=== PATIENT | female | born 1980 | race Hispanic/Latino ===

== ENCOUNTER 2016-10-08 16:27 | Emergency (ER) | payer OTHER ==
--- NOTE | 2016-10-08 16:56 | PDOC ---
Neuro Symptoms / Deficit HPI - General Chief Complaint: Neurological Complaints Stated Complaint: SEIZURE Date Seen by Provider: 10/08/16 Time Seen by Provider: 16:51 Source: POSITIVE: Patient, EMS Exam Limitations: POSITIVE: Clinical condition Nurse's Notes Reviewed & Considered: Yes EMS Report Reviewed & Considered: Verbal - History of Present Illness Initial Comments: Patient is brought in today after being arrested. During her rest she had what appeared to be seizure activity. Patient does have a history of seizure activity. It is noted by the officers involved that every time that this patient was arrested for the last 5 years she has had a seizure. This reports no postictal activity she did become combative and received Haldol. Timing: REPORTS: Abrupt Duration: 1/2 hour Severity: Mild Context: REPORTS: Other (Arrest) Character of Deficit(s): REPORTS: Other (None) Associated Symptoms: REPORTS: Other (None) Usual Ability to Walk/Stand: REPORTS: Walks w/o Assistance Usual Cognition: REPORTS: Alert & Oriented x3 Similar Symptoms Previously: No Recently seen/treated/hospitalized: No Any Prior Injuries Related to Current Complaint?: No - Patient Home Medications Home Medications: Home Medications Divalproex Sodium 500 mg PO BID tab 06/21/16 Hydrocodone/Acetaminophen [[place] 5-325 Tablet] 1 - 2 each PO Q6H PRN #10 tablet 08/14/16 Omeprazole 20 mg PO BID #30 cap 08/14/16 Ondansetron Odt [Zofran Odt] 8 mg PO Q6H PRN #10 tab.rapdis 08/14/16 Pantoprazole Sodium [Protonix] 40 mg PO BID #60 tablet 08/16/16 Buspirone HCl 1 tab PO BID #60 tab 08/18/16 - Patient Allergies Allergies/Adverse Reactions: Allergies Allergy/AdvReac Type Severity Reaction Status Date / Time risperidone [From Risperdal] Allergy Intermediate NOT Verified 10/08/16 16:48 APPLICABLE codeine AdvReac Intermediate NAUSEA Verified 10/08/16 16:48 metoclopramide HCl AdvReac Intermediate AGITATION Verified 10/08/16 16:48 [From Reglan] lorazepam [From Ativan] AdvReac NOT Verified 10/08/16 16:48 APPLICABLE Past Medical History - heen HEENT History: Denies History Additional HEENT History: WEARS GLASSES FOR NEAR SIGHTEDNESS BROKEN TEETH IN THE BACK Cardiovascular History: Denies History Respiratory History: Denies History Gastrointestinal History: Gallbladder Disease, Other (please comment) Additional Gastrointestinal History: STATES ULCERS A YEAR AGO, CHOLECYSTECTOMY Genitourinary History: Denies History Endocrine History: Denies History Musculoskeletal History: Joint Pain Prosthesis or Implant: Yes (plate/ screws left foot) Additional Musculoskeletal History: FOOT PAIN, SURGERY TO REPAIR LEFT BROKEN TOE , SURGERY ON LEFT SHOULDER Neurological History: Seizures, Other (please comment) Additional Neurological History: HX OF PSEUDOSEIZURES Blood Disorders: Denies History Psychiatric History: Depression, Bi Polar Disorder, Anixety Disorders, Substance Abuse, PTSD Additional Psychiatric History: BORDERLINE PERSONALITY DISORDER/ CONVERSION DISORDER/ IMPULSE CONTROL DISORDER/ MOOD DISORDER/ History of Sexually Transmitted Diseases: No Cancer History: Denies History Cancer Treatment / Date(s) of Treatment: 2007 History of MDRO: Yes History of Other Communicable Diseases: No Alcohol Use: None Substance Use Type: None Previous Surgical History: Yes Type / Date of Surgery: TANNA/ HYST W BSO/ TUBAL /LEFT SHOULDER / LEFT TOE Anesthesia Reactions: No Malignant Hyperthermia: No Significant Family History: Diabetes, Heart disease, Hypertension, Lung disease , Seizures ROS - Limitations ROS Limitations: Clinical Condition Neuro Symptoms / Deficit Exam - General Appearance General Appearance: POSITIVE: Mild Distress - HEENT HEENT: POSITIVE: Head Inspection Nml, Eyes Inspection Nml, Ears Inspection Nml, Nose Inspection Nml, Oral/Dental Inspect. Nml, Pharynx Inspect. Nml, PERRL, EOMI - Pupil Size Pupil Size: 5 mm: Bilateral - Neuro / Psych Higher Functions: POSITIVE: Oriented to Person, Oriented to Place, Oriented to Time, Normal Speech, Normal Cognition, Other (tearful) Cranial Nerves: POSITIVE: Normal As Tested, No Evidence of Acute CVA Cerebellar: POSITIVE: Normal As Tested Peripheral Exam: POSITIVE: Sensation Normal, Motor Normal, Reflexes Normal Reflexes: Radial (R): 3+, Radial (L): 3+ - Neck Neck: POSITIVE: Supple, Non-Tender - Respiratory Respiratory: POSITIVE: No Respiratory Distress, Breath Sounds Normal, Respiratory Distress - Cardiovascular Cardiovascular: POSITIVE: Regular Rate & Rhythm, Heart Sounds Normal - Abdomen Abdomen: Soft: (All Quadrants), Normal Bowel Sounds: (All Quadrants), Denies Tenderness: (All Quadrants) - Skin Skin: POSITIVE: Intact, Normal For Race, Warm, Dry, No Rash - Extremities Extremity: Non-Tender: (All Extremities), Normal ROM: (All Extremities), Normal Inspection: (All Extremities) Neuro Symptom/Deficit Progress - Patient's Progress Status: POSITIVE: Unchanged MDM / ED Course: Patient was evaluated in the emergency department and discharged. - Consult Counseled: POSITIVE: Patient, RE: DX Patient Care Time - Estimated PCT Patient Care Time (In Minutes): 15 Vital Signs - VS Reviewed Vital Signs Reviewed: Yes Discharge Clinical Impression: Anxiety attack, Methamphetamine abuse Discharge Disposition: Discharged to Custody of Law Enforcement Condition: Stable Patient Instructions Given at Discharge: Methamphetamine Abuse (ED) Date Decision to Transfer to Another Facility: 10/08/16 Time Decision to Transfer to Another Facility: 16:57
[2016-10-08 17:33] VITALS: RESP 20; TEMP 97.5
[2016-10-08] MEDS ORDERED: Sodium Chloride 0.9% 1,000 ML ONE (18:00)
== END 2016-10-08 17:30 ==
LOC: ER 16:27
DX: F41.9 Anxiety disorder, unspecified (principal); Z71.51 Drug abuse counseling and surveillance of drug abuser; F15.20 Other stimulant dependence, uncomplicated
CPT/HCPCS: 99282; J7030

== ENCOUNTER 2016-10-09 11:46 | Emergency (ER) | payer OTHER ==
[2016-10-09] MEDS ORDERED: Sodium Chloride 0.9% 1,000 ML PRIMARY IV ONE (12:05)
[2016-10-09] MEDS ORDERED: NORMAL SALINE 10 ML SYRINGE FLUSH IVP PRN (12:05)
[2016-10-09 12:07] VITALS: RESP 16; TEMP 96.6
[2016-10-09 12:36] LABS: BASOPHILS # (AUTO) 0.01 10*3/UL; BASOPHILS % (AUTO) 0.3 % (0-1); EOSINOPHILS % (AUTO) 1.5 % (0-8); HEMATOCRIT 39.1 % (37.0-47.0); HEMOGLOBIN 13.4 g/dL (12.0-16.0); IMM GRAN % (AUTO) 0.5 % (0-5); IMM GRAN# (AUTO) 0.02 10*3/UL; LYMPHOCYTES # (AUTO) 1.34 10*3/uL; LYMPHOCYTES % (AUTO) 34.1 % (10-50); MEAN CORPUSCULAR HEMOGLOBIN 29.4 PG (27-31); MEAN CORPUSCULAR HGB CONC 34.3 g/dL (33-37); MEAN PLATELET VOLUME 8.3 FL (7.4-12.2); MONOCYTES # (AUTO) 0.29 10*3/UL (0.3-0.8); MONOCYTES % (AUTO) 7.4 % (5-15); NEUTROPHILS # (AUTO) 2.21 10*3/UL; NEUTROPHILS % (AUTO) 56.2 % (50-80); RDW COEFFICIENT OF VARIATION 13.1 % (11.5-14.5); RED BLOOD COUNT 4.56 10^6/uL (4.20-5.40); WHITE BLOOD COUNT 3.93 10^3/uL (4.8-10.8)
[2016-10-09 12:44] LABS: PLATELET MORPHOLOGY COMMENT NORMAL MORPHOLOGY (NORM)
[2016-10-09 12:47] LABS: ASPARTATE AMINO TRANSFERASE 21 IU/L (8-39); BILIRUBIN,TOTAL 0.7 mg/dL (0.3-1.2); BLOOD UREA NITROGEN 15 mg/dL (7-22); BUN/CREATININE RATIO 18.75 (6-20); CALCIUM 9.4 mg/dL (8.7-10.7); CHLORIDE 110 meq/L (98-112); CREATININE 0.8 mg/dL (0.50-1.20); EST GLOMERULAR FILTRATION > 60 (>60 ml/min/1.73m(2)); GLUCOSE 93 mg/dL (78-110); MAGNESIUM 2.1 mg/dL (1.6-2.4); SODIUM 144 meq/L (135-145); TOTAL PROTEIN 6.6 g/dL (6.1-8.0)
--- NOTE | 2016-10-09 12:47 | EKG ---
[address] [address] Measurements Intervals [place] Rate: 86 P: 74 UT: 155 QRS: 56 QRSD: 93 T: 53 QT: 374 QTc: 417 Interpretive Statements SINUS RHYTHM Compared to ECG 07/21/2016 08:35:11 No significant changes Electronically Signed On 10-10-16 08:10:26 MST by Van Capps [email or web address]
[2016-10-09] MEDS ORDERED: DIVALPROEX SODIUM 250 MG TABLET PO ONE (13:30)
[2016-10-09 13:31] LABS: CANNABINOID SCREEN,URINE NEGATIVE (NEG); COCAINE SCREEN POSITIVE (NEG); METHAMPHETAMINES SCREEN,URINE NEGATIVE (NEG); URINE SAMPLE TYPE CLEAN CATCH URINE; URINE SPECIFIC GRAVITY - MAN 1.025
--- NOTE | 2016-10-09 20:13 | PDOC ---
Seizure HPI - General Chief Complaint: Neurological Complaints Stated Complaint: seizure Date Seen by Provider: 10/09/16 Time Seen by Provider: 11:15 Source: POSITIVE: Patient, Police, EMS Exam Limitations: POSITIVE: Clinical condition (Somnolent on arrival) Nurse's Notes Reviewed & Considered: Yes EMS Report Reviewed & Considered: Verbal - History of Present Illness Initial Comments: The patient is a 37-year-old female. She is a prisoner at the shelter. She is brought to the emergency room by ambulance. Patient was admitted to the shelter yesterday; at that time patient reportedly acknowledged methamphetamine abuse. Patient has a well-known and long-standing history of seizures/pseudoseizures and is under the care of a neurologist in [place]. She is supposed to be taking divalproex sodium, 500 mg twice daily, but states she's not taken this medication for several days. Patient also has a long-standing history of substance abuse. Just prior to coming to the emergency room shelter personnel noticed that the patient demonstrated some tonic activities of both upper extremities and some "grinding of her teeth". [facility] personnel called the ambulance and the ambulance brought her to the emergency room. Paramedics report that on their arrival the patient was sitting in her bed and was alert. Upon arrival to the emergency room she was somewhat somnolent but will answer questions appropriately. Body Location Affected: REPORTS: Upper Extremity (L), Upper Extremity (R), Other (Tonic activity of upper extremities associated with some bruxism) Timing: REPORTS: Abrupt Duration: Other (1-2 minutes) Severity: Moderate Quality: REPORTS: Other (No apparent pain anywhere) Seizure Began at (time): 11:00 Most Recent Seizure Episode: 10/09/16 Witnessed Seizure?: Yes (shelter personnel) Preceding Symptoms/Context (specify in comments): REPORTS: Recent Drug Use ( Patient acknowledges methamphetamine use and abuse), Seiz. Meds Dosages Missed ( Patient is supposed to be taking divalproex sodium, 500 mg twice daily, but acknowledges she has not been taking this.) Character of Seizure(s): REPORTS: Partially Unresponsive, Other (As above; tonic activities upper extremities and bruxism). DENIES: Consc. Not Regain. b/ w Sz, Gen. "Shaking all Over", "Shaking" in One Area, Staring, Incontinent of Urine, Incontinent of Stool, Stopped Breathing, Lost Pulse Post-ictal Symptoms: REPORTS: Other (Somnolence) Recently seen/treated/hospitalized: No Any Prior Injuries Related to Current Complaint?: No - Patient Home Medications Home Medications: Home Medications Divalproex Sodium 500 mg PO BID tab 06/21/16 Hydrocodone/Acetaminophen [[place] 5-325 Tablet] 1 - 2 each PO Q6H PRN #10 tablet 08/14/16 Omeprazole 20 mg PO BID #30 cap 08/14/16 Ondansetron Odt [Zofran Odt] 8 mg PO Q6H PRN #10 tab.rapdis 08/14/16 Pantoprazole Sodium [Protonix] 40 mg PO BID #60 tablet 08/16/16 Buspirone HCl 1 tab PO BID #60 tab 08/18/16 Divalproex Sodium [Depakote] 500 mg PO BID #60 tab 10/09/16 - Patient Allergies Allergies/Adverse Reactions: Allergies Allergy/AdvReac Type Severity Reaction Status Date / Time risperidone [From Risperdal] Allergy Intermediate NOT Verified 10/09/16 13:09 APPLICABLE codeine AdvReac Intermediate NAUSEA Verified 10/09/16 13:09 metoclopramide HCl AdvReac Intermediate AGITATION Verified 10/09/16 13:09 [From Reglan] lorazepam [From Ativan] AdvReac NOT Verified 10/09/16 13:09 APPLICABLE Past Medical History - heen HEENT History: Denies History Additional HEENT History: WEARS GLASSES FOR NEAR SIGHTEDNESS BROKEN TEETH IN THE BACK Cardiovascular History: Denies History Respiratory History: Denies History Gastrointestinal History: Gallbladder Disease, Other (please comment) Additional Gastrointestinal History: STATES ULCERS A YEAR AGO, CHOLECYSTECTOMY Genitourinary History: Denies History Endocrine History: Denies History Musculoskeletal History: Joint Pain Prosthesis or Implant: Yes (plate/ screws left foot) Additional Musculoskeletal History: FOOT PAIN, SURGERY TO REPAIR LEFT BROKEN TOE , SURGERY ON LEFT SHOULDER Neurological History: Seizures, Other (please comment) Additional Neurological History: HX OF PSEUDOSEIZURES Blood Disorders: Denies History Psychiatric History: Depression, Bi Polar Disorder, Anixety Disorders, Substance Abuse, PTSD Additional Psychiatric History: BORDERLINE PERSONALITY DISORDER/ CONVERSION DISORDER/ IMPULSE CONTROL DISORDER/ MOOD DISORDER/ History of Sexually Transmitted Diseases: No Female Reproductive History: Hysterectomy Cancer History: Denies History Cancer Treatment / Date(s) of Treatment: 2007 In Past Year Been Physically Harmed or Verbally Threatened: No History of MDRO: Yes History of Other Communicable Diseases: No Tobacco Use: Current Every Day Smoker Alcohol Use: None Substance Use Type: Methamphetamines Previous Surgical History: Yes Type / Date of Surgery: TANNA/ HYST W BSO/ TUBAL /LEFT SHOULDER / LEFT TOE Anesthesia Reactions: No Malignant Hyperthermia: No Significant Family History: Diabetes, Heart disease, Hypertension, Lung disease , Seizures Past Medical History Reviewed: Reviewed - No Changes ROS - Limitations ROS Limitations: Clinical Condition (Somnolent on arrival but able answer questions and cooperative. Alert on discharge.) [place]: REPORTS: Denies Symptoms Cardiovascular: REPORTS: Denies Cardiac Symptoms Respiratory: REPORTS: Denies Resp Symptoms Neurological: REPORTS: Denies Neuro Symptoms Gastrointestinal: REPORTS: Denies GI Symptoms Endocrine: REPORTS: Denies Symptoms Musculoskeletal: REPORTS: Denies MS Symptoms Genitourinary: REPORTS: Denies Symptoms Eyes: REPORTS: Denies Symptoms ENT: REPORTS: Denies Symptoms Skin: REPORTS: Denies Skin Symptoms Lympathic: REPORTS: Denies Lympathic Symptoms Immunologic: POSITIVE: Denies Symptoms Psychiatric: POSITIVE: Denies Psych Symptoms Seizure Exam - General Appearance General Appearance: POSITIVE: No Acute Distress, Alert - HEENT HEENT: POSITIVE: Head Inspection Nml, Eyes Inspection Nml, Ears Inspection Nml, Nose Inspection Nml, Oral/Dental Inspect. Nml, Pharynx Inspect. Nml, PERRL, EOMI - Pupil Size Pupil Size: 4 mm: Bilateral (PERRLA) - Neck Neck: POSITIVE: Non Tender, Neck Supple, Trachea Midline, Nexus Criteria Negative - Respiratory Respiratory: POSITIVE: Chest Non Tender, No Ecchymosis, Breath Sounds Normal, No Respiratory Distress - Cardiovascular Cardiovascular: POSITIVE: Regular Rate and Rhythm, Heart Sounds Normal, Equal Pulses, Strong Pulses, No Murmur, No Gallop, No JVD, No Pulse Deficit Peripheral Pulses: Radial (R): 2+, Radial (L): 2+ - Abdomen Abdomen: Soft: (All Quadrants), Normal Bowel Sounds: (All Quadrants), Denies Tenderness: (All Quadrants), No Splenomegaly: (All Quadrants), No Hepatomegaly: (All Quadrants), No Guarding: (All Quadrants), No Rebound: (All Quadrants), No Palpable Pulse: (All Quadrants), No Palpabale Mass: (All Quadrants), No Distention: (All Quadrants), No Rigidity: (All Quadrants) - Skin Skin: POSITIVE: Intact, Normal For Race, Warm, Dry, No Rash - Extremities Extremity: Non-Tender: (All Extremities), Normal ROM: (All Extremities), Normal Inspection: (All Extremities) - Observed Seizure Activity Observed Seizure Activity in ED: NEGATIVE: Focal, Generalized, Head Turned, Eyes Deviated, Awake, Responsive, Unresponsive, Other - Neuro / Psych Higher Functions: POSITIVE: Oriented x3, Speech Normal, Mood Appropriate, Affect Appropriate Cranial Nerves: POSITIVE: Normal As Tested, No Evidence of Acute CVA Cerebellar: POSITIVE: Normal As Tested Sensorimotor: POSITIVE: No Motor Deficits, No Sensory Deficits, Reflexes Normal , Symmetrical Seizure Progress - Results Reviewed by me Lab Results Reviewed: Yes (tox screen positive for methamphetamine and cocaine) Lab Results:: Laboratory Results 10/09/16 Range/Units 12:33 WBC 3.93 L (4.8-10.8) 10^3/uL RBC 4.56 (4.20-5.40) 10^6/uL Hgb 13.4 (12.0-16.0) g/dL Hct 39.1 (37.0-47.0) % MCV 85.7 (81-99) FL MCH 29.4 (27-31) PG MCHC 34.3 (33-37) g/dL RDW Std Deviation 40.8 (39-50) fL RDW Coeff of [place] 13.1 (11.5-14.5) % Plt Count 270 (140-350) 10*3/uL MPV 8.3 (7.4-12.2) FL Immature Gran % (Auto) 0.5 (0-5) % Neut % (Auto) 56.2 (50-80) % Lymph % (Auto) 34.1 (10-50) % [place] % (Auto) 7.4 (5-15) % Eos % (Auto) 1.5 (0-8) % Baso % (Auto) 0.3 (0-1) % Immature Gran # (Auto) 0.02 10*3/UL Neut # (Auto) 2.21 10*3/UL Lymph # (Auto) 1.34 10*3/uL [place] # (Auto) 0.29 L (0.3-0.8) 10*3/UL Eos # (Auto) 0.06 10*3/UL Baso # (Auto) 0.01 10*3/UL WBC Morphology Comment Normal morphology (NORM) Plt Morphology Comment Normal morphology (NORM) RBC Morph Comment Normal morphology (NORM) Sodium 144 (135-145) meq/L Potassium 4.0 (3.8-5.2) meq/L Chloride 110 (98-112) meq/L Carbon Dioxide 24 (23-33) meq/L Anion Gap 10 (5-20) BUN 15 (7-22) mg/dL Creatinine 0.8 (0.50-1.20) mg/dL Estimated GFR > 60 (>60 ml/min/1.73m(2)) BUN/Creatinine Ratio 18.75 (6-20) Glucose 93 (78-110) mg/dL Calculated Osmolality 298.0 H (267-292) mOsm/kg Calcium 9.4 (8.7-10.7) mg/dL Magnesium 2.1 (1.6-2.4) mg/dL Total Bilirubin 0.7 (0.3-1.2) mg/dL AST 21 (8-39) IU/L ALT 32 (9-52) IU/L Alkaline Phosphatase 78 (38-126) IU/L Total Protein 6.6 (6.1-8.0) g/dL Albumin 3.8 (3.5-4.8) g/dL Globulin 2.8 (2.50-4.10) g/dL Albumin/Globulin Ratio 1.30 (1.3-2.0) mg/g Ur Collection Type Clean catch urine U Specif Grav (Refrac) 1.025 Urine Opiates Screen Negative (NEG) Ur Buprenorphine Negative (NEG) Ur Oxycodone Screen Negative (NEG) Urine Methadone Screen Negative (NEG) Ur Propoxyphene Screen Negative (NEG) Barbiturate Screen Negative (NEG) U Tricyclic Antidepress Negative (NEG) Phencyclidine Screen Negative (NEG) Amphetamines Screen Positive H (NEG) U Methamphetamines Scrn Negative (NEG) Benzodiazepines Screen Negative (NEG) Cocaine Screen Positive H (NEG) U Marijuana (THC) Screen Negative (NEG) Serum Alcohol < 10 (0-10) mg/dL EKG Interpreted/Reviewed By Me:: Yes EKG Interpretation:: POSITIVE: Normal Sinus Rhythm, Normal Rate, Normal Intervals, Normal [place], Normal QRS, Normal ST/T - Patient's Progress Pain Medication Addressed: POSITIVE: Not Applicable School/Work Release Addressed: POSITIVE: Yes (May return to shelter) Re-Examine Time:: 13:35 Status: POSITIVE: Improved - Consult Counseled: POSITIVE: Patient, RE: Lab Results, RE: Radiology Results, RE: DX, RE : Need for F/U Patient Care Time - Estimated PCT Patient Care Time (In Minutes): 48 Vital Signs - Recent Vital Signs Vital Signs: Vital Signs (Last 8 hours) Pulse Resp BP Pulse Ox 10/09/16 13:56 93 16 106/83 96 - VS Reviewed Vital Signs Reviewed: Yes Discharge Clinical Impression: Observed seizure-like activity, Non compliance w medication regimen Discharge Disposition: Discharged to Custody of Law Enforcement Condition: Stable Prescriptions / Orders: Divalproex Sodium [Depakote] 500 mg PO BID #60 tab Patient Instructions Given at Discharge: Recurrent Seizures in Adults (ED) Additional Instructions: Make sure you take your medication as prescribed, which is divalproex sodium, 500 mg every 12 hours. Follow-up with your neurologist and primary care provider. Avoid alcohol and illegal substances. Return as necessary. Follow Up With: NONE,NONE [Primary Care Provider] - (Instructions as above. Follow-up with your neurologist and primary care provider. Make sure you take your seizure medication as prescribed.) Date Decision to Transfer to Another Facility: 10/09/16 Time Decision to Transfer to Another Facility: 13:35
== END 2016-10-09 13:56 ==
LOC: ER 11:46
DX: G40.89 Other seizures (principal); R40.0 Somnolence; Z72.0 Tobacco use
CPT/HCPCS: 80053; 80164; 80320; 83735; 85025; 93005; 93010; 96360; 99283 ×2; G0477; 80305; J7030

== ENCOUNTER 2016-10-10 13:02 | Emergency (ER) | payer OTHER ==
[2016-10-10] MEDS ORDERED: NORMAL SALINE 10 ML SYRINGE FLUSH IVP PRN (13:17)
[2016-10-10] MEDS ORDERED: SODIUM CHLORIDE 0.9% IV ONE (13:24)
[2016-10-10] MEDS ORDERED: VALPROATE IV ONE (13:24)
--- NOTE | 2016-10-10 13:34 | PDOC ---
Seizure HPI - General Chief Complaint: Neurological Complaints Stated Complaint: SEIZURE Date Seen by Provider: 10/10/16 Time Seen by Provider: 13:29 - History of Present Illness Initial Comments: Patient is a 36-year-old woman unfortunate adenectomy methamphetamine and frequent IV drug abuser. She is apparently incarcerated and just finished a court hearing and the past as had pseudoseizure activity especially with stress. She came back from her court hearing and had pseudoseizures start. She does not have any evidence of fall or injury she has normal vital signs and is just lying on the gurney on responsive to questions. - Patient Home Medications Home Medications: Home Medications Hydrocodone/Acetaminophen [[place] 5-325 Tablet] 1 - 2 each PO Q6H PRN #10 tablet 08/14/16 Omeprazole 20 mg PO BID #30 cap 08/14/16 Ondansetron Odt [Zofran Odt] 8 mg PO Q6H PRN #10 tab.rapdis 08/14/16 Pantoprazole Sodium [Protonix] 40 mg PO BID #60 tablet 08/16/16 Buspirone HCl 1 tab PO BID #60 tab 08/18/16 Divalproex Sodium [Depakote] 500 mg PO BID #60 tab 10/09/16 - Patient Allergies Allergies/Adverse Reactions: Allergies Allergy/AdvReac Type Severity Reaction Status Date / Time risperidone [From Risperdal] Allergy Intermediate NOT Verified 10/10/16 13:09 APPLICABLE codeine AdvReac Intermediate NAUSEA Verified 10/10/16 13:09 metoclopramide HCl AdvReac Intermediate AGITATION Verified 10/10/16 13:09 [From Reglan] lorazepam [From Ativan] AdvReac NOT Verified 10/10/16 13:09 APPLICABLE Past Medical History - heen HEENT History: Denies History Additional HEENT History: WEARS GLASSES FOR NEAR SIGHTEDNESS BROKEN TEETH IN THE BACK Cardiovascular History: Denies History Respiratory History: Denies History Gastrointestinal History: Gallbladder Disease, Other (please comment) Additional Gastrointestinal History: STATES ULCERS A YEAR AGO, CHOLECYSTECTOMY Genitourinary History: Denies History Endocrine History: Denies History Musculoskeletal History: Joint Pain Prosthesis or Implant: Yes (plate/ screws left foot) Additional Musculoskeletal History: FOOT PAIN, SURGERY TO REPAIR LEFT BROKEN TOE , SURGERY ON LEFT SHOULDER Neurological History: Seizures, Other (please comment) Additional Neurological History: HX OF PSEUDOSEIZURES Blood Disorders: Denies History Psychiatric History: Depression, Bi Polar Disorder, Anixety Disorders, Substance Abuse, PTSD Additional Psychiatric History: BORDERLINE PERSONALITY DISORDER/ CONVERSION DISORDER/ IMPULSE CONTROL DISORDER/ MOOD DISORDER/ History of Sexually Transmitted Diseases: No Cancer History: Denies History Cancer Treatment / Date(s) of Treatment: 2007 History of MDRO: Yes History of Other Communicable Diseases: No Alcohol Use: None Substance Use Type: None Previous Surgical History: Yes Type / Date of Surgery: TANNA/ HYST W BSO/ TUBAL /LEFT SHOULDER / LEFT TOE Anesthesia Reactions: No Malignant Hyperthermia: No Significant Family History: Diabetes, Heart disease, Hypertension, Lung disease , Seizures ROS - Limitations ROS Limitations: Other (please comment) (Unobtainable secondary to her not responding to questions) Seizure Exam - General Appearance General Appearance: POSITIVE: No Acute Distress - HEENT HEENT: POSITIVE: Head Inspection Nml, Eyes Inspection Nml - Neck Neck: POSITIVE: Non Tender, Neck Supple - Respiratory Respiratory: POSITIVE: Chest Non Tender, No Ecchymosis, Breath Sounds Normal, No Respiratory Distress - Cardiovascular Cardiovascular: POSITIVE: Regular Rate and Rhythm, Heart Sounds Normal - Abdomen Abdomen: Soft: (All Quadrants), Normal Bowel Sounds: (All Quadrants), Denies Tenderness: (All Quadrants) - Skin Skin: POSITIVE: Intact, Normal For Race, Other (Multiple areas of track malhotra) - Neuro / Psych Higher Functions: POSITIVE: Other (Patient has normal pupillary reflex other reflexes are intact no signs of substantial neurologic impairment though physical exams difficult with no cooperation) Seizure Progress - Patient's Progress MDM / ED Course: This patient reportedly refused to take her dose of Depakote today she has had history of pseudoseizure confirmed she has no abnormal brain wave activity per previous notes. At this point think we'll go ahead and give her an IV dose of Depakote over this will help with some mood stabilization and with anxiety and any other propensity toward pseudoseizure that she may have. Will watch her here in the emergency department when she becomes more awake and alert will go ahead and discharge her back to the [facility]. Patient Care Time - Estimated PCT Patient Care Time (In Minutes): 25 Vital Signs - Recent Vital Signs Vital Signs: Vital Signs (Last 8 hours) Temp Pulse Resp BP Pulse Ox 10/10/16 14:11 92 16 108/68 96 10/10/16 13:55 92 16 95 10/10/16 13:08 96.7 F L 121 H 18 106/85 94 - VS Reviewed Vital Signs Reviewed: Yes Discharge Clinical Impression: Pseudoseizure Discharge Disposition: Discharged to Custody of Law Enforcement Condition: Fair Patient Instructions Given at Discharge: Recurrent Seizures in Adults (ED) Additional Instructions: With any further pseudoseizures watch the patient for a period of time taking vital signs and ensure the patient is lying down in a safe location. It is safe to watch this patient with confirmed pseudoseizure history for a while before bringing her to medical attention as long as she is otherwise looking well and vitals are benign. If there is ever any significant concern however do not hesitate to bring her back for evaluation Follow Up With: NONE,NONE [Primary Care Provider] - Date Decision to Transfer to Another Facility: 10/10/16 Time Decision to Transfer to Another Facility: 13:58
[2016-10-10 13:35] VITALS: TEMP 96.7
[2016-10-10 14:11] VITALS: RESP 16
== END 2016-10-10 14:55 ==
LOC: ER 13:02
DX: G40.89 Other seizures (principal)
CPT/HCPCS: 96365; 99282 ×2; J3490; J7050

== ENCOUNTER 2018-04-02 01:47 | Inpatient (IN) ==
[2018-04-02] MEDS ORDERED: D5-1/2NS 1,000 ML PRIMARY IV SCH (02:30)
[2018-04-02] MEDS ORDERED: LIDOCAINE W/ SODIUM BICARB 0.5 ML SYR SUBD PRN (02:58)
[2018-04-02] MEDS ORDERED: ONDANSETRON 4 MG/2 ML VIAL IVP PRN (03:03)
[2018-04-02] MEDS ORDERED: D5-1/2NS + 20mEq KCL 1,000 ML PRIMARY IV SCH (03:15)
[2018-04-02] MEDS ORDERED: LEVETIRACETAM 1500 MG PO SCH (03:15)
[2018-04-02] MEDS ORDERED: Levofloxacin (Premix) 750 MG/150 ML PIGGYBACK IV SCH (03:15)
[2018-04-02] MEDS ORDERED: LevETIRAcetam Tab 500 MG TABLET PO SCH (03:23)
--- NOTE | 2018-04-02 03:27 | PDOC ---
HPI - History of Present Illness Date of Service: 04/02/18 Time of Service: 03:10 Chief Complaint: Right lower quadrant pain History of Present Illness: This is a 37-year-old female who's right lower quadrant abdominal pain this initially started 2 days ago on Monday, March 31. Patient states that they did a urinalysis at the woman's [place] [facility] last which then started her on antibiotics for UTI. The patient still has persistent pain. Her last bowel movement was yesterday. There is no hematochezia hematemesis or melena. Patient denies fever. Patient had a normal white count and never more hospital [facility] today. Patient subsequently had a CT scan which failed to show the appendix. Patient has had a abdominal hysterectomy with salpingo-oophorectomy. Patient is also laparoscopic cholecystectomy. Patient states that she is actually feeling little bit better now. Past Medical History Medical History: 1. Seizure disorder grand mal per the family she had it for about 3 or 4 years. 2. Panic attacks. 3. In the office notes there is a description of pseudoseizure although the mother said this is the first time she heard about it Surgical History: 1. Cholecystectomy. 2. Hysterectomy. 3. Arthroscopic shoulder surgery Pertinent Family History: Mother has seizure disorder Tobacco Use: Never Smoker In the Past 12 Months, Have Used or Abuse Any of the Following Substance: Methamphetamines, Other (please comment) Medication / Allergies Home Medications: Home Medications 3 Medication Instructions Recorded Confirmed Type Hydroxyzine Pamoate [Vistaril] 25 mg PO BID 04/02/18 04/02/18 History Levetiracetam [Keppra] 1,500 mg PO BID 04/02/18 04/02/18 History Omeprazole 20 mg PO BID 04/02/18 04/02/18 History Allergies/Adverse Reactions: Allergies 3 Allergy/AdvReac Type Severity Reaction Status Date / Time fosphenytoin [From Cerebyx] Allergy Intermediate HIVES Verified 02/15/18 14:29 risperidone [From Risperdal] Allergy Intermediate NOT Verified 02/15/18 14:29 APPLICABLE codeine AdvReac Intermediate NAUSEA Verified 02/15/18 14:29 metoclopramide HCl AdvReac Intermediate AGITATION Verified 02/15/18 14:29 [From Reglan] ceftriaxone [From Rocephin] AdvReac ITCHING Verified 07/16/18 01:57 lorazepam [From Ativan] AdvReac NOT Verified 02/15/18 14:29 APPLICABLE Review of Systems - Constitutional Constitutional: REPORTS: General Health Excellent - Integumentary Integumentary: REPORTS: Negative System Review - Mouth/Throat Mouth/Throat Exam: REPORTS: Negative System Review - Respiratory Respiratory: REPORTS: Negative System Review - Cardiovascular Cardiovascular: REPORTS: Negative System Review - Gastrointestinal Gastrointestinal / Abdominal: REPORTS: See HPI - Genitourinary Genitourinary: REPORTS: See HPI - Gynecological Gynecological: REPORTS: See HPI - Musculoskeletal Musculoskeletal: REPORTS: Back Pain - Hematlogic / Lymphatic Hematologic / Lymphatic: REPORTS: Negative System Review - Neurological Neurologic: REPORTS: Seizures - Psychiatric Psychiatric: REPORTS: Negative System Review Exam - Vitals Vital Signs: Vital Signs Oxygen Delivery Method Room Air Height 5 ft 3 in Weight 145 lb 9.6 oz - General General Appearance: No Acute Distress, Cooperative - Head Head Exam: Normocephalic - Eye Eye Exam: POSITIVE: PERRL, EOMI - Neck Neck Exam: Full ROM - Respiratory Respiratory Exam: POSITIVE: Clear to Auscultation - Bilaterally, Breathing Non Labored - GI/Abdominal GI/Abdominal Exam: POSITIVE: Normal Bowel Sounds, Non Tender, Non Distended, Soft - Rectal Rectal Exam: POSITIVE: Deferred Assessment and Plan - Patient Problems (1) Right lower quadrant abdominal pain Current Visit: Yes Status: Acute Code(s): R10.31 - Right lower quadrant pain (2) Appendicitis Current Visit: Yes Status: Acute Code(s): K37 - Unspecified appendicitis - Assessment / Plan Additional Assessment/Plan Details: Patient has right lower quadrant pain and physical exam is acute appendicitis. Appendix was not visualized on CT scan. She also brings question appendicitis is that she has a normal white count. And when treated like she has acute appendicitis but due to and medical management with IV antibiotic therapy. She had a reaction to Rocephin but will start her on levofloxacin 700 mg every 24 hours. Also Flagyl. Repeat WBC this afternoon. Need BVP CT scan with IV and oral and rectal contrast
[2018-04-02] MEDS: MORPHINE SULFATE 2 MG/1 ML IVP PRN ×2 (03:34→06:52)
[2018-04-02] MEDS ORDERED: metroNIDAZOLE 500mg (Premix) 500 MG/100 ML BAG IV SCH (08:30)
[2018-04-02] MEDS ORDERED: FAMOTIDINE 20 MG/2 ML VIAL IVP SCH (09:00)
[2018-04-02] MEDS ORDERED: HYDROXYZINE PAMOATE 25 MG CAPSULE PO SCH (09:00)
[2018-04-02 09:47] LABS: BASOPHILS # (AUTO) 0.01 10*3/UL; BASOPHILS % (AUTO) 0.2 % (0-1); EOSINOPHILS # (AUTO) 0.15 10*3/UL; EOSINOPHILS % (AUTO) 2.8 % (0-8); MEAN CORPUSCULAR HEMOGLOBIN 30.2 PG (27-31); MEAN CORPUSCULAR HGB CONC 33.3 g/dL (33-37); MEAN CORPUSCULAR VOLUME 90.5 FL (81-99); MEAN PLATELET VOLUME 8.7 FL (7.4-12.2); MONOCYTES # (AUTO) 0.59 10*3/UL (0.3-0.8); MONOCYTES % (AUTO) 11.1 % (5-15); NEUTROPHILS # (AUTO) 2.74 10*3/UL; NEUTROPHILS % (AUTO) 51.7 % (50-80); RED BLOOD COUNT 3.98 10^6/uL (4.20-5.40)
[2018-04-02 09:48] LABS: PLATELET MORPHOLOGY COMMENT NORMAL MORPHOLOGY (NORM); RBC MORPHOLOGY COMMENT NORMAL MORPHOLOGY (NORM); WBC MORPHOLOGY COMMENT NORMAL MORPHOLOGY (NORM)
--- NOTE | 2018-04-02 10:02 | CONSULT ---
Consult Note - Consult Consult Date: 04/02/18 Reason for Consult: PreOp Consulation : General Surgery (Please help adjust seizure disorder in setting of right upper quadrant pain) Requesting Physician: Dr. Coley Primary Care Provider: NONE NONE HPI - History of Present Illness Date of Service: 04/02/18 Time of Service: 10:01 Chief Complaint: Abdominal pain right sided History of Present Illness: This is a very pleasant 37-year-old female who is currently residing at [facility] [place], [place]. She stated to me that she had relapsed on methamphetamines and smoked it and this was caught on the routine urinalysis by her emergency response officer which is why she is now in [facility]. Be that as it may, she developed abdominal pain on Monday, described it as right lower quadrant pain. She denied any fevers but she had chills and felt very hot and cold. She had not had pain like this before per her history. She's had a history of a cholecystectomy and total abdominal hysterectomy with bilateral salpingectomy oophorectomy. She denied any nausea or vomiting. She states the pain is been gradually getting worse and she also had some right-sided back pain. Initially , urinalysis was positive for leukocyte esterase and she was started on Bactrim. She was sent to the hospital in [place], where she had a CT scan and the appendix was not visualized. The patient was transferred here for further evaluation, and a CT scan is ordered for this morning with triple contrast. She has been on Levaquin and Flagyl empirically at this time. Thus far, urine culture results are negative and we will call to the [place] [facility] to see if we can get culture results back. 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 She was sent to [facility] in [place], [place], for workup. We will try to get those records as well. Today, she states that her abdominal pain is more diffuse, concentrating mostly on the lower quadrants, and is only minimally relieved by morphine. In terms of her seizure disorder, she states that she was placed on Keppra about a month ago and has not had any breakthrough seizures since that time. She also carries a diagnosis of pseudoseizures. She states to me that she has not had any recent testing for hepatitis or HIV. She states she's had a very poor appetite and is only had a couple of bites of putting in the last few days. Exacerbating factors are difficult to obtain in this history. The patient did deny any urinary complaints. She did not have any dysuria or pain with urination. She denied having any problems with urinary tract infections in the past. Past Medical History Medical History: 1. Seizure disorder grand mal, currently on Keppra. 2. Panic attacks. 3. History of pseudoseizure. 4. History of methamphetamine abuse Surgical History: 1. Cholecystectomy. 2. Hysterectomy with bilateral subconjunctival oophorectomy. 3. Arthroscopic shoulder surgery. 4. Foot surgery Pertinent Family History: Mother has seizure disorder. She states that there is a history of heart disease in the family as well. Past Social History: Does not smoke tobacco. Has had problems with methamphetamine abuse. Has 3 children described as healthy. [facility] residing in [facility] [place], [place]. Denies drinking alcohol. Tobacco Use: Never Smoker In the Past 12 Months, Have Used or Abuse Any of the Following Substance: Methamphetamines Alcohol Use: None Review of Systems - Review of Systems All Systems: Reviewed & No Additional Complaints Except as Stated (I did a 12 point review systems and it is negative other than that described in history of present illness and that noted below.) - Musculoskeletal Musculoskeletal: REPORTS: Other (Get some muscle cramps in her calves at times.) Medication / Allergies Home Medications: Home Medications 3 Medication Instructions Recorded Confirmed Type Hydroxyzine Pamoate [Vistaril] 25 mg PO BID 04/02/18 04/02/18 History Levetiracetam [Keppra] 1,500 mg PO BID 04/02/18 04/02/18 History Omeprazole 20 mg PO BID 04/02/18 04/02/18 History Allergies/Adverse Reactions: Allergies 3 Allergy/AdvReac Type Severity Reaction Status Date / Time fosphenytoin [From Cerebyx] Allergy Intermediate HIVES Verified 04/02/18 06:22 risperidone [From Risperdal] Allergy Intermediate NOT Verified 04/02/18 06:22 APPLICABLE codeine AdvReac Intermediate NAUSEA Verified 04/02/18 06:22 metoclopramide HCl AdvReac Intermediate AGITATION Verified 04/02/18 06:22 [From Reglan] ceftriaxone [From Rocephin] AdvReac ITCHING Verified 04/02/18 06:22 lorazepam [From Ativan] AdvReac NOT Verified 04/02/18 06:22 APPLICABLE Exam - Vitals Vital Signs: Vital Signs Temperature 97.3 F Temperature Source Temporal Artery Scan Pulse Rate [Apical] 115 Pulse Rate [Pulse Oximeter] 117 Respiratory Rate 20 Blood Pressure [Right Arm] 115/86 Pulse Ox 92 Oxygen Delivery Method Room Air Height 5 ft 3 in Weight 145 lb 9.6 oz - General General Appearance: No Acute Distress, Cooperative Additional General Exam Details: She is tearful on exam. - Head Head Exam: Normal Inspection, Normocephalic, Atraumatic - Eye Eye Exam: POSITIVE: No Scleral Icterus - ENT ENT Exam: POSITIVE: Mucous Membranes Moist - Neck Neck Exam: Normal Inspection, No Tenderness, No Lymphadenopathy, No Thyromegaly - Respiratory Respiratory Exam: POSITIVE: Clear to Auscultation - Bilaterally, Breathing Non Labored, Normal to Percussion and Palpation - Cardiovascular Cardiovascular Exam: POSITIVE: No Murmur, No Clicks, No Gallops, No Rubs, Tachycardia, No JVD - GI/Abdominal GI/Abdominal Exam: POSITIVE: Normal Bowel Sounds, Non Distended, Soft, Guarding (She guards on palpation.) - Rectal Rectal Exam: POSITIVE: Deferred - External Exam: POSITIVE: Deferred Exam: POSITIVE: Deferred - Extremities Extremities Exam: POSITIVE: No Clubbing Present, No Edema Present, No Cyanosis Present - Back Back Exam: POSITIVE: Normal Inspection, CVA Tenderness (R) - Neurological Neurological Exam: POSITIVE: Alert, Oriented x 3, No Facial Droop, Speech Intact / Clear, Moves All Extremities Equally - Psychiatric Psychiatric Exam: POSITIVE: Anxious Results - Labs CBC and BMP: 04/02/18 09:45 Additional Lab Results: Laboratory Results 04/02/18 Range/Units 09:45 WBC 5.30 (4.8-10.8) 10^3/uL RBC 3.98 L (4.20-5.40) 10^6/uL Hgb 12.0 (12.0-16.0) g/dL Hct 36.0 L (37.0-47.0) % MCV 90.5 (81-99) FL MCH 30.2 (27-31) PG MCHC 33.3 (33-37) g/dL RDW Std Deviation 47.9 (39-50) fL RDW Coeff of [place] 14.9 H (11.5-14.5) % Plt Count 167 (140-350) 10*3/uL MPV 8.7 (7.4-12.2) FL Immature Gran % (Auto) 0.2 (0-5) % Neut % (Auto) 51.7 (50-80) % Lymph % (Auto) 34.0 (10-50) % [place] % (Auto) 11.1 (5-15) % Eos % (Auto) 2.8 (0-8) % Baso % (Auto) 0.2 (0-1) % Immature Gran # (Auto) 0.01 10*3/UL Neut # (Auto) 2.74 10*3/UL Lymph # (Auto) 1.80 10*3/uL [place] # (Auto) 0.59 (0.3-0.8) 10*3/UL Eos # (Auto) 0.15 10*3/UL Baso # (Auto) 0.01 10*3/UL WBC Morphology Comment Normal morphology (NORM) Plt Morphology Comment Normal morphology (NORM) RBC Morph Comment Normal morphology (NORM) - Imaging Status: Other (On my review of the record from [place], [place], the CT scan was read as appendix not visualized. 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 There could be a pseudoseizure activity as the patient is in a high anxiety state without a clear cause of the abdominal pain at this point. That being said, she does have a history of constipation as well and there appears to be stool in the right colon on studies done in [place]. We will have to await the CT scan results today. When diet is advanced by mouth, we can convert the Keppra back to by mouth as well. I will write for Ativan when necessary seizure activity. We'll try to get records from [facility] from 2016 regarding the superior mesenteric artery syndrome workup. We will try to get records from [place], [place], regarding the urine test done on Monday. I like to see if culture results came back positive or not. Thus far, she did not have a lot of symptoms to suggest urinary tract infection but does have some right back pain/flank pain. I recommend checking labs tomorrow. Given that she has not been tested for HIV or hepatitis in some time, I think that we should screen for those again. Could've been in a window period on prior testing. Thank you for this consult, it would be the hospitalist service's pleasure to continue to assist in this patient's management during hospital stay.
[2018-04-02] MEDS ORDERED: LORazepam 2 MG/1 ML VIAL IVP PRN (10:10)
[2018-04-02] MEDS ORDERED: HYDROmorphone 2 MG/1 ML IVP PRN (10:12)
[2018-04-02 10:14] LABS: BLOOD UREA NITROGEN 14 mg/dL (7-22)
[2018-04-02 11:15] LABS: HIV ANTIBODY NEGATIVE (N); HIV-1 P24 ANTIGEN NEGATIVE (N)
[2018-04-02] MEDS ORDERED: PANTOPRAZOLE 40 MG TABLET PO ONE (13:12)
[2018-04-02] MEDS ORDERED: DICYCLOMINE 20 MG TABLET PO SCH (13:15)
[2018-04-02 13:19] VITALS: BP 102/57; RESP 12; TEMP 98.4; O2SAT 91
--- NOTE | 2018-04-02 14:43 | DI ---
CT Abdomen/Pelvis W Contrast,04/02/2018 9:38 AM: Clinical History: Abdominal pain and nausea. Previous Exam: August 14, 2016 Findings: Multiple helically acquired CT images are obtained through the abdomen and pelvis following the intra venous administration of 75 cc of Isovue 300. Oral and rectal contrast was also administered. The liver, spleen, pancreas, adrenals and kidneys are unremarkable. Patient is status post cholecyste ctomy. The urinary bladder is unremarkable. The appendix is normal measuring 6 mm in diameter. There is no mesenteric or retroperitoneal lymphadenopathy. The lung bases are clear. Skeletal structu res are unremarkable. Impression: 1. Normal appendix. 2. No acute intra-abdominal pathology.
--- NOTE | 2018-04-02 14:43 | DCSUMMARY ---
Discharge Summary Admit Date: 04/02/18 Discharge Date: 04/02/18 Admitting Diagnosis: right lower quadrant pain appendicitis Discharge Diagnosis: Constipation functional bowel disease Hospital Course: 37-year-old female comes in with possible appendicitis. She had right lower quadrant abdominal pain. She is seen at the [facility] in [place], workup had a normal white count and a CT scan is unremarkable except they could not see the appendix. He also read as constipation. She is mid the hospital started on antibiotic therapy for appendicitis. She stated that she started having more severe crampy abdominal pain across the lower abdomen therefore we repeated the CAT scan with IV oral and rectal contrast. CT scan showed a normal appendix. Again large amount stool within the colon. It is felt that her pain was secondary to constipation. The Gastrografin that was given for contrast should take care of the constipation. Would recommend Bentyl 20 mg 4 times a day. High-fiber diet. Exam - Vitals Vital Signs: Vital Signs Temperature 98.4 F Temperature Source Temporal Artery Scan Pulse Rate [Apical] 115 Pulse Rate [Pulse Oximeter] 79 Respiratory Rate 12 Blood Pressure [Right Arm] 102/57 Pulse Ox 91 Oxygen Delivery Method Room Air Height 5 ft 3 in Weight 145 lb 9.6 oz - Respiratory Respiratory Exam: POSITIVE: Clear to Auscultation - Bilaterally - GI/Abdominal GI/Abdominal Exam: POSITIVE: Normal Bowel Sounds, Non Tender, Soft Patient Problems - Patient Problem List (1) Right lower quadrant abdominal pain Current Visit: Yes Status: Acute Code(s): R10.31 - Right lower quadrant pain Category: Medical (2) Appendicitis Current Visit: Yes Status: Acute Code(s): K37 - Unspecified appendicitis Category: Medical
[2018-04-03 09:30] LABS: HEP B CORE IGM ANTIBODY Negative (Negative); HEPATITIS B SURFACE AG Negative (Negative)
[2018-04-03 13:24] LABS: HEPATITIS A IGM Negative (Negative)
== END 2018-04-02 15:33 | disposition home or self-care (01) | DRG 392 ==
LOC: MED/SURG 01:47
PROVIDERS: ADMIT Surgery; ATTEND Surgery